=== PATIENT | female | born 1985 | race Caucasian/White ===

== ENCOUNTER → 2020-04-05 | Outpatient (CLI) | payer OTHER ==
[~2020-04-05] MED LIST: CLINDAMYCIN HC300 MG PO
== END ==
LOC: EXRD 11:25
DX: R10.813 Right lower quadrant abdominal tenderness (principal); Z87.42 Personal history of other diseases of the female genital tract; N88.8 Other specified noninflammatory disorders of cervix uteri; R93.89 Abnormal findings on diagnostic imaging of other specified body structures
CPT/HCPCS: 76830

== ENCOUNTER 2021-04-07 16:21 | Emergency (ER) | payer OTHER | END 2021-04-07 17:45 | disposition left against medical advice (07) | LOC: ER1 16:21 | DX: Z53.21 Procedure and treatment not carried out due to patient leaving prior to being seen by health care provider (principal) | CPT/HCPCS: 93005 ==

== ENCOUNTER 2021-05-21 17:18 | Emergency (ER) | payer OTHER ==
[2021-05-21 18:54] LABS: HEMOGLOBIN 13.9 gm/dl (12.3-15.3); RED BLOOD COUNT 4.38 M/UL (4.00-5.10); WHITE BLOOD COUNT 10.4 K/UL (4.5-11.0)
[2021-05-21 19:39] LABS: BUN/CREATININE RATIO 17 (0-10)
[2021-05-21] MEDS ORDERED: LEVOFLOXACIN750 MG PO (20:36)
== END 2021-05-21 21:15 | disposition home or self-care (01) ==
LOC: ER1 17:18
PROVIDERS: Emergency Medicine
DX: N10 Acute pyelonephritis (principal); Z87.442 Personal history of urinary calculi; Z88.0 Allergy status to penicillin; F17.200 Nicotine dependence, unspecified, uncomplicated
CPT/HCPCS: 80053; 81001; 84703; 85025; 96374; 96375; 99284; J0696; J1885

== ENCOUNTER 2021-09-30 21:30 | Inpatient (IN) | payer OTHER ==
[~2021-09-30] VITALS: Ht 167.6 cm; Wt 122.5 kg
[~2021-09-30 21:30] MED LIST changes: +LEVOFLOXACIN750 MG PO
[2021-09-30 22:07] LABS: HEMOGLOBIN 13.9 gm/dl (12.3-15.3); RED BLOOD COUNT 4.41 M/UL (4.00-5.10); WHITE BLOOD COUNT 11.8 K/UL (4.5-11.0)
[2021-09-30 22:36] LABS: BUN/CREATININE RATIO 16 (0-10)
[2021-10-01 06:42] LABS: HEMOGLOBIN 13.8 gm/dl (12.3-15.3); RED BLOOD COUNT 4.37 M/UL (4.00-5.10); WHITE BLOOD COUNT 10.8 K/UL (4.5-11.0)
[2021-10-01 07:38] LABS: BUN/CREATININE RATIO 16 (0-10)
[2021-10-01] MEDS ORDERED: PROAIR HFA8.5 GM INH (09:42)
== END 2021-10-01 10:57 | disposition left against medical advice (07) | DRG 600 ==
LOC: ER1 21:30 → CDU 23:29
PROVIDERS: Nurse Practitioner; ADMIT Internal Medicine
DX: N61.1 Abscess of the breast and nipple (principal); Z68.41 Body mass index [BMI] 40.0-44.9, adult; F17.210 Nicotine dependence, cigarettes, uncomplicated; E66.01 Morbid (severe) obesity due to excess calories; Z20.822 Contact with and (suspected) exposure to COVID-19; Z90.49 Acquired absence of other specified parts of digestive tract
CPT/HCPCS: 80048; 80053; 80307; 81001; 83605; 83735; 84100; 85025; 85027; 85610; 85652; 86140; 87040; 87070; 87205; 96365; 96366; 96367; 96372; 96375; 99283; J1170; J1885; J2185; J2270; J3370; J7070